=== PATIENT | male | born 1975 | race Caucasian/White ===

== ENCOUNTER 2017-07-23 16:13 | Emergency (ER) | payer OTHER ==
[~2017-07-23] VITALS: Ht 170.2 cm; Wt 63.5 kg
[~2017-07-23 16:13] MED LIST: ACETAMINOPHEN325 M1; CLEOCIN HCL150 MG PO; CLEOCIN HCL300 MG; CLEOCIN HCL300 MG PO; CLINDAMYCIN HC150 MG PO; DOXYCYCLINE 10100 M1 PO; DOXYCYCLINE 10100 MG PO; HYDROCODONE-AP1 EAC6 PO; IBUPROFEN 800800 M1 PO; IBUPROFEN200 M2 PO; NOHOMEMEDICATIONS; NORCO 5-325 TA1 EACH PO; VICODIN 5-5001 EACH PO
== END 2017-07-23 17:49 ==
LOC: ER 16:13
DX: R21 Rash and other nonspecific skin eruption (principal); Z88.0 Allergy status to penicillin; Z87.891 Personal history of nicotine dependence